=== PATIENT | female | born 1990 | race Caucasian/White ===

== ENCOUNTER → 2017-11-26 13:54 | Outpatient (CLI) | payer OTHER, SELFPAY ==
[2017-11-26 14:26] LABS: Add Manual Diff / Slide Review NO; Basophils Percent Auto 0.6 % (0-2); Hematocrit 36.3 % (36-46); Hemoglobin 12.9 g/dL (12.0-16.0); Lymphocytes Percent Auto 25.2 % (25-40); Mean Corpuscular HGB Conc 35.6 % (30-36); Mean Corpuscular Hemoglobin 33.3 PG (26-34); Mean Corpuscular Volume 93.7 fL (80-100); Monocytes Percent Auto 5.4 % (3-14); Neutrophils Absolute Auto 4000 /uL (3000-5900); Neutrophils Percent Auto 65.8 % (50-75); Platelet Count 251 X10^3/uL (150-400); Red Blood Cell Count 3.87 X10^6/uL (4.0-5.2); Red Cell Distribution Width 13.1 % (11.6-14.8); White Blood Cell Count 6.1 X10^3/uL (4.5-11.0)
== END ==
PROVIDERS: Visit Provider Obstetrics & Gynecology
DX: O31.21X1 Continuing pregnancy after intrauterine death of one fetus or more, first trimester, fetus 1 (principal)
CPT/HCPCS: 36415; 85025; 86850; 86900; 86901

== ENCOUNTER 2017-11-27 14:02 | Day surgery (SDC) | payer OTHER, SELFPAY ==
[2017-11-27] VITALS (7 sets, daily range): BP systolic 116–130; BP diastolic 59–79; PULSE 68–97; RESP 12–19; TEMP 36.2–37.8; O2SAT 97–100; BMI 32.3
--- NOTE | 2017-11-27 | PATH_ITS ---
[facility] Accession Number: [id number] . 01 Material submitted: . POC IN FORMALIN . 02 Diagnosis: Products of Conception In Formalin: Products of conception/chorionic villi identified. Fetus present (foot length 1.2 cm); with no morphologic abnormalities by gross evaluation. MRV/11/30/2017 . 02 Electronically signed: . Yane Cary MD, Pathologist NPI- [id number] . 01 Gross description: . Received in formalin, labeled products of conception, formalin, are multiple fragments of red-brown and gandhi-oliveros spongy and partially membranous tissue (15.8 x 13.5 x 4.5 cm in aggregate) containing a fragmented developing fetus (9.0 x 8.5 x 1.3 cm in aggregate). The fetus has a hand length of 1.1 cm and a foot length of 1.2 cm. A developing face is identified with two eyes, a normally developing upper palate and tongue, and two patent nares. The internal organs are identified and no pathological abnormalities are identified. Cargo Service Agent tissue submitted in cassettes A1-A3. Note: Per the requisition, this is a split sample with tissue sent in BSS for chromosome analysis. ([id number]) /MRV . 02 Pathologist provided ICD-10: O02.1 . 02 CPT . 773742 Specimen Comment: A duplicate report has been generated due to demographic updates. Performed at: 01 [facility] [address] [facility], [place], [place] [id number] MD Dragan Bermeo MD Phone: [phone] Performed at: 02 [facility] [address] [place], [place] [id number] MD Oscar Hudson MD Phone: [phone]
[2017-11-27] MEDS: LACTATED RINGERS 1,000 ML 42 ML IV (14:58)
--- NOTE | 2017-11-27 15:19 | SUR.OPER ---
Lithotomy on padded OR bed, head on pillow, arms secured on padded arm boards at <90 degrees abduction. Legs secured in padded yellow fins stirrups.
--- NOTE | 2017-11-27 15:32 | PM.PREOP ---
Pre-operative Note Interval Note Pre-op Check: Yes History & Physical Reviewed by Physician Changes: No
[2017-11-27] MEDS: CEFAZOLIN 2 GM/100 ML FROZ.PIGGY IV (15:40)
[2017-11-27] MEDS: BUPIVACAINE 0.25% W/ EPI VIAL 50 ML INJ (15:54)
[2017-11-27] MEDS: METHYLERGONOVINE 0.2 MG/ML VIAL IM (16:08)
[2017-11-27] MEDS: SILVER NITRATE STICK 1 EACH TOP (16:20)
--- NOTE | 2017-11-27 16:43 | PM.GYNOP.1 ---
Operative Date/Time/Diagnoses Date of procedure: 11/27/17 Time of procedure: 15:45 Pre-op diagnosis: Intrauterine demise 13+5 weeks Post-op diagnosis: same Procedure: Procedures Operation Date: 11/27/17 15:15 Actual Procedures Side Surgeon p Dilation and Evacuation Angeline Barrera MD Indications: The patient is a 27-year-old 2 para 1 female at approximately 16 weeks by last menstrual period, diagnosed with an intrauterine demise measuring 13+ 5 weeks, here for suction dilation and evacuation. The diagnosis was made based on the clinical ultrasound on 25 November. It was then confirmed with formal ultrasound at Radiology. She has had symptoms of a headache and depressed mood for the past week. She denies any bleeding or abdominal pain. Upon making the diagnosis, the recommendation for surgical intervention was made given the size of the fetus. The patient desired to proceed with such. The risks, benefits, limitations, alternatives, and expectations of surgery were discussed, and the consent was reviewed and signed prior to the day of surgery. Surgeon: Angeline Barrera Anesthesia Type: General and Local (Marcaine 0.25% with epinephrine) Operative Notes Findings: Exam under anesthesia: Uterus approximately 14 weeks, mid plane. No adnexal masses were palpable. Operative findings: Cervix appeared multiparous with no lesions. It easily dilated to allow passage of a 12 mm suction curette. A large amount of products of conception was obtained with a combination of suction and evacuation using a polyp forcep and large uterine curette. Extremities, torso, and cranium were noted within the acquired tissue. Placenta tissue was also obtained. Closure Type: not applicable Specimen(s): other (Products of conception: one limb (lower extremity) and placenta tissue sent for chromosome analysis; remainder sent for routine pathology.) Estimated blood loss (mL): 1,500 Blood products transfused: none Procedure in detail: The patient was taken to the operating room where general anesthesia with LMA was administered without difficulty. She was then placed in the high dorsal lithotomy position with her lower extremities in [place] stirrups. Exam under anesthesia was then performed with the findings as noted above. Perineum and vagina were then prepped and draped in a sterile fashion, and in-and-out catheterization was performed. Procedure Time-Out was performed. A sterile bivalve speculum was then placed. The anterior lip of the cervix was then grasped with a single-toothed tenaculum. Local anesthetic using 0.25% Marcaine with epinephrine was then injected at the 2:00, 4:00, 7:00, and 10:00 positions for a paracervical block. The cervix was then serially dilated until a 12 mm curved rigid suction curette could be gently advanced to the uterine fundus. Suction curettage was then performed, and gestational sac entered, obtaining clear, brownish amniotic fluid. Suction curettage was performed obtaining a small amount of tissue. As tissue was visualized at the os, polyp forceps and ring forceps were utilized to bluntly explore the uterine cavity and remove products of conception. Once it was felt that majority of the tissue was removed, gentle sharp curettage was then performed and good crie was noted on all 4 marion of the uterus. Minimal to no additional tissue was noted with sharp or two more passes with the suction curette. At this point, uterine tone was only fair, and short gushes of bleeding were noted upon removal of the suction curette. Metherine 0.2 mg was given IM to help with tone and bleeding. The obtained products of conception were examined, accounting for parts. Bleeding had improved. The tenaculum was then removed, and the tenaculum sites hemostatic after application of silver nitrate. At this point, the procedure was deemed complete. Sponge, lap, and needle count were correct x3. There were no complications. The patient was then taken to the recovery room in stable condition. Complications: none Post-operative Condition: stable Disposition: same day surgery Plan for aftercare: See discharge instructions. Discharge home with motrin and vicodin prn pain and methergine 0.2 mg PO Q 6 hrs x 4 doses.
--- NOTE | 2017-11-27 16:59 | SUR.PHASEII ---
Fadi-pad checked with Dr Barrera. Small amt of vaginal bleeding noted to fadi-pad.
[2017-11-27] MEDS: OXYCODONE/ACETAMINOPHEN 5/325 TABLET 1 TAB PO (17:22)
--- NOTE | 2017-11-27 17:30 | SUR.PHASEII ---
Moderate amt of intermittent bleeding to fadi-pad. Pad changed. Pt medicated with Percocet for pain. Po intake provided.
--- NOTE | 2017-11-27 18:12 | SUR.PHASEII ---
Pt sat on the edge of the bed, scant to small amt bloody drainage to fadi-pad. Pt reported 1/10 pain. IV d/c'd.
--- NOTE | 2017-11-27 18:14 | SUR.PHASEII ---
Addendum: Pt had reported in pacu that she felt like she voided a small amt. Dark color on the sheet under patient
== END 2017-11-27 18:18 | disposition home or self-care (01) ==
LOC: OR 14:02
PROVIDERS: Visit Provider Obstetrics & Gynecology
PROC: (CPT 58120; principal; 2017-11-27 15:15)
DX: O02.1 Missed abortion (principal); Z3A.14 14 weeks gestation of pregnancy; E66.9 Obesity, unspecified
CPT/HCPCS: 59821; 88305; J0690; J1100; J2210; J2405; J2704; J3010

== ENCOUNTER 2019-02-16 13:44 | Outpatient (CLI) | payer OTHER, SELFPAY ==
--- NOTE | 2019-02-16 15:36 | PT.OIE ---
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
--- NOTE | 2019-02-16 15:39 | PT.OIE ---
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 Please see paper chart for details. Visit Start Time 14:05 Visit Stop Time 14:40 Total Visit Minutes 35 Visit Number 1 Number of MICROWAVE ENGINEER Visits 0
== END 2019-03-17 12:21 | disposition home or self-care (01) ==
LOC: PHYS 13:45
PROVIDERS: Visit Provider Family Medicine
DX: Q79.60 Ehlers-Danlos syndrome, unspecified (principal); Z98.890 Other specified postprocedural states
CPT/HCPCS: 97162